=== PATIENT | female | born 1955 | race Caucasian/White ===

== ENCOUNTER → 2016-09-09 | Outpatient (CLI) | payer OTHER ==
--- NOTE | 2016-09-09 13:21 | MAM ---
EXAM DESCRIPTION: Diagnostic Mammo,Left CLINICAL HISTORY: 60 years, Female, diagnostic unilateral mammogram, left breast. This is a short-term follow-up of a possible abnormality seen on the left breast COMPARISON: I compared directly with March 12, 2016 mammography TECHNIQUE: CC, MLO, and true lateral views of the left breast with computer aided detection FINDINGS: There are scattered fibroglandular densities. The finding in question noted previously does not persist on the study today. Benign microcalcifications are present. IMPRESSION: BI-RADS 2: BENIGN FOLLOW-UP: Routine mammography screening. Electronically signed by: Juan Luis Lara MD 09/09/2016 1:20 PM CDT
== END | disposition home or self-care (01) ==
LOC: MAMMO 12:45
PROVIDERS: ATTEND Family Medicine
DX: R92.8 Other abnormal and inconclusive findings on diagnostic imaging of breast (principal)

== ENCOUNTER → 2016-09-26 | Outpatient (CLI) | payer OTHER | LOC: LAB.O 08:20 | PROVIDERS: ATTEND Family Medicine | DX: E87.6 Hypokalemia (principal); E03.9 Hypothyroidism, unspecified; R73.9 Hyperglycemia, unspecified ==

== ENCOUNTER → 2017-09-16 | Outpatient (CLI) | payer OTHER ==
--- NOTE | 2017-09-17 15:41 | MAM ---
EXAM DESCRIPTION: 3D Screening BILATERAL : Digital Mammography. CLINICAL HISTORY: 61 years Female SCREENING . No complaints. No family history of breast cancer. Childbirth. Postmenopausal. Currently on HRT. COMPARISON: 2-D digital screening bilateral study 03/12/2016. Digital diagnostic left breast mammography 09/09/2016. Reports from prior examinations also reviewed. TECHNIQUE: Bilateral CC and MLO projection full-field images, 3-D tomosynthesis digital mammographic technique. CAD not utilized. FINDINGS: The breast parenchymal density pattern is: Scattered areas of fibroglandular density. No skin thickening or nipple retraction . Left breast axillary lymph node. Bilateral solitary microcalcifications. No focal, stellate mass or density, focal asymmetry , and no suspicious microcalcifications bilaterally. Stable mammograms compared to prior study, taking into account differences in mammographic technique IMPRESSION: BI-RADS CATEGORY: 2 - BENIGN FINDINGS. FOLLOW UP: Routine digital bilateral screening, one year interval from September 2017. Written communication explaining the IMPRESSION and follow-up, will be mailed to the patient and referring health care provider. According to the [employer], yearly mammograms are recommended starting at age 40 and continuing as long as a woman is in good health. Any breast change noted on a breast self-exam should be reported promptly to the patient's healthcare provider. Breast MRI is recommended for women with an approximately 20-25% or greater lifetime risk of breast cancer, including women with a strong family history of breast or ovarian cancer and women who have been treated for Hodgkin's disease. A negative mammographic report should not delay tissue diagnosis in patients with significant clinical history or physical findings. Extremely dense breast tissue limits the sensitivity of digital mammography. Electronically signed by: Luis Ngo MD 09/17/2017 3:40 PM CDT
== END ==
LOC: MAMMO 16:00
PROVIDERS: ATTEND Family Medicine
DX: Z12.31 Encounter for screening mammogram for malignant neoplasm of breast (principal)

== ENCOUNTER → 2017-11-13 | Outpatient (CLI) | payer OTHER | LOC: LAB.O 08:39 | PROVIDERS: ATTEND Family Medicine | DX: E87.6 Hypokalemia (principal); R73.9 Hyperglycemia, unspecified; E03.9 Hypothyroidism, unspecified ==

== ENCOUNTER → 2017-11-25 | Outpatient (CLI) | payer OTHER ==
--- NOTE | 2017-11-25 16:25 | RAD ---
EXAM DESCRIPTION: Chest,2 Views CLINICAL HISTORY: ENCOUNTER FOR GENERAL ADULT EXAM W/O ABNORMAL FINDINGS COMPARISON: None TECHNIQUE: PA/lateral FINDINGS: There is no acute appearing cardiac or pulmonary abnormality. Heart size is normal with normal pulmonary vascularity. No pleural effusion or pneumothorax. Lungs are clear with no consolidating infiltrate. Small nodule in the peripheral right upper lobe is consistent with a granuloma. Lateral view shows intact sternum and osteopenic T-spine. IMPRESSION: No acute process is identified in the chest. Electronically signed by: Juventino Tate MD 11/25/2017 4:24 PM CDT
== END ==
LOC: RAD 11-24 15:30
PROVIDERS: ATTEND Family Medicine
DX: Z00.00 Encounter for general adult medical examination without abnormal findings (principal)

== ENCOUNTER 2018-01-23 11:43 | Emergency (ER) | payer OTHER ==
--- NOTE | 2018-01-23 12:15 | ED.PDOC ---
History of Present Illness - General Chief Complaint: Trauma Stated Complaint: s/p fall Time Seen by Provider: 01/23/18 11:43 Source: patient, RN notes reviewed, Vital Signs reviewed Exam Limitations: no limitations Additional Information: 62 YEAR OLD FELL IN THE PARKING LOT AFTER HER SHOES SLIPPED ON THE WET ROAD SHE FELL LANDING ON THE RIGHT BUTTOCK AND RIGHT ARM SHE GOT UP WITHOUT ANY ASSISTANCE WALKED TO THE ER SHE HAS NO LOC NO HEAD NECK INJURY SHE HAS NO SPECIFIC COMPLAINT ADMITS TO DISCOMFORT IN THE RIGHT HIP AREA SHE HAS GOOD RANGE OF BOTH ACTIVE AND PASSIVE MOTION WITHOUT ANY PAIN - History of Present Illness Occurred: just prior to arrival Severity: mild Pain Location: none Method of Injury: fall Improving Factors: nothing Worsening Factors: nothing Loss of Consciousness: no loss of consciousness Associated Symptoms (Fall): denies symptoms Allergies/Adverse Reactions: Allergies Naproxen [From Aleve] Allergy (Verified 05/09/14 00:41) Penicillins Allergy (Verified 05/09/14 00:41) Home Medications: Ambulatory Orders Aspirin [Kera Low Dose] 81 mg PO DAILY 09/07/15 Estradiol [Estrace Tab] 1 mg PO DAILY 09/07/15 Levothyroxine Sodium [Synthroid] 50 mcg PO DAILY 09/07/15 Medroxyprogesterone Acetate [Provera] 2.5 mg PO DAILY 09/07/15 Topiramate [Topamax] 100 mg PO BID 09/07/15 Review of Systems - Review of Systems Constitutional: States: no symptoms reported EENTM: States: no symptoms reported Respiratory: States: no symptoms reported Cardiology: States: no symptoms reported Gastrointestinal/Abdominal: States: no symptoms reported Genitourinary: States: no symptoms reported Musculoskeletal: States: no symptoms reported Skin: States: no symptoms reported Neurological: States: no symptoms reported Endocrine: States: no symptoms reported Hematologic/Lymphatic: States: no symptoms reported Past Medical History (General) - Patient Medical History Hx of COPD: Yes Hx Congestive Heart Failure: No Hx Hypertension: No Hx Diabetes: No - Vaccination History Hx Tetanus, Diphtheria Vaccination: Yes Hx Influenza Vaccination: Yes - 2014 Hx Pneumococcal Vaccination: No - Social History Hx Tobacco Use: No Family Medical History - Family History Mother Living Status: Physical Exam - Physical Exam General Appearance: Alert, Comfortable Head Injury: no evidence of injury Eye Exam: bilateral normal ENT Exam: hearing grossly normal, no evidence of ENT injury, no dental injury Neck Exam: non-tender, full range of motion, normal alignment, normal inspection Cardiovascular/Respiratory: regular rate, rhythm, no M/R/G, normal peripheral pulses, no JVD, normal breath sounds, no respiratory distress Gastrointestinal/Abdominal: normal bowel sounds, non tender, soft, no organomegaly, no pulsatile mass Back Exam: normal inspection, no CVA tenderness, no vertebral tenderness Extremity Exam: no evidence of injury, normal range of motion, non-tender Neurologic: 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 Copy, Patient Portal Self Enrollment Instructions: DI for Trauma Diet: resume usual diet Referrals: Jaxson Krishna MD [Primary Care Provider] - 1-2 Weeks Home Medications: Ambulatory Orders Aspirin [Kera Low Dose] 81 mg PO DAILY 09/07/15 Estradiol [Estrace Tab] 1 mg PO DAILY 09/07/15 Levothyroxine Sodium [Synthroid] 50 mcg PO DAILY 09/07/15 Medroxyprogesterone Acetate [Provera] 2.5 mg PO DAILY 09/07/15 Topiramate [Topamax] 100 mg PO BID 09/07/15
[2018-01-23 12:32] VITALS: BP 145/71; TEMP 97; O2SAT 99
== END 2018-01-23 12:30 | disposition home or self-care (01) ==
LOC: ER 11:43
DX: T14.8XXA Other injury of unspecified body region, initial encounter (principal); M25.551 Pain in right hip; J44.9 Chronic obstructive pulmonary disease, unspecified; Z79.82 Long term (current) use of aspirin; Z79.899 Other long term (current) drug therapy; Z88.6 Allergy status to analgesic agent; Z88.0 Allergy status to penicillin; W01.0XXA Fall on same level from slipping, tripping and stumbling without subsequent striking against object, initial encounter; Y92.481 Parking lot as the place of occurrence of the external cause

== ENCOUNTER → 2018-04-22 | Outpatient (CLI) | payer OTHER | LOC: LAB.O 07:12 | PROVIDERS: ATTEND Family Medicine | DX: I10 Essential (primary) hypertension (principal); E03.9 Hypothyroidism, unspecified; R73.9 Hyperglycemia, unspecified ==

== ENCOUNTER → 2018-11-16 | Outpatient (CLI) | payer BC ==
--- NOTE | 2018-11-16 16:47 | MAM ---
EXAM DESCRIPTION: 3D Diagnostic, Left (accession [id number]), Breast,Left (accession [id number]): Ultrasound CLINICAL HISTORY: 63 yearsFemaleAbnormal mammo . Possible enlarged lymph node left breast. Lifetime risk of developing breast cancer (Tyrer-Cuzick model)(%): Not calculated COMPARISON: Bilateral screening digital breast tomosynthesis 09/23/2018. TECHNIQUE: Left breast LM projection full-field images, digital mammographic tomosynthesis technique. CAD not available . Transcutaneous scanning of the left breast utilizing casillas-scale and Doppler modes. Scanning performed by the stove refinisher ; monitored by Dr. Ngo. FINDINGS: The breast parenchymal density pattern is: Scattered areas of fibroglandular density. No skin thickening or nipple retraction digital tomosynthesis images suggest eccentric fat within the small density just anterior to the pectoral muscle more likely representing a lymph node. No focal asymmetry is seen in the posterior fibroglandular tissues. Ultrasound: Scanning of the 12:00 position of the left breast in the left axilla. Almost totally fatty echotexture. Minimal fibroglandular tissues. At the 12:00 position 4 cm from the nipple is a hypoechoic mass measuring 3.8 x 2.1 cm with circumscribed margins and central echogenicity. Not vascular. Wider than tall orientation with predominantly posterior acoustic enhancement. Most likely a lymph node. IMPRESSION: Benign exam. BIRAD CATEGORY: 2 BENIGN FINDINGS. RECOMMENDATIONS: FOLLOW UP: Routine digital bilateral mammographic screening, one year interval from September 2018. Written communication explaining the IMPRESSION and follow-up, will be mailed to the patient and referring health care provider. The FINDINGS and the FOLLOW-UP plan were reviewed in person with the patient after the examination. According to the [employer], yearly mammograms are recommended starting at age 40 and continuing as long as a woman is in good health. Any breast change noted on a breast self-exam should be reported promptly to the patient's healthcare provider. Breast MRI is recommended for women with an approximately 20-25% or greater lifetime risk of breast cancer, including women with a strong family history of breast or ovarian cancer and women who have been treated for Hodgkin's disease. A negative mammographic report should not delay tissue diagnosis in patients with significant clinical history or physical findings. Extremely dense breast tissue limits the sensitivity of digital mammography. Electronically signed by: Luis Ngo MD 11/16/2018 4:45 PM CDT
== END ==
LOC: US 15:00
PROVIDERS: ATTEND Family Medicine
DX: R92.8 Other abnormal and inconclusive findings on diagnostic imaging of breast (principal)
CPT/HCPCS: 76641; 77065; G0279

== ENCOUNTER → 2019-11-19 | Outpatient (CLI) | payer MEDICARE, OTHER ==
--- NOTE | 2019-11-22 12:22 | MAM ---
EXAM DESCRIPTION: 3D Screening BILATERAL : Digital Mammography. CLINICAL HISTORY: 64 years Female ANNUAL SCREENING . No complaints. Menarche age 11. Childbirth age 19. Menopause age 34. Currently on HRT. Lifetime risk of developing breast cancer (Tyrer-Cuzick model)(%): 5.8. COMPARISON: Bilateral screening digital breast tomosynthesis September 2018 and left breast digital breast diagnostic tomosynthesis November 2018.. TECHNIQUE: Bilateral CC and MLO projection full-field images, digital tomosynthesis mammographic technique. Bilateral digital 2-D full-field MLO images. CAD available for 2-D images. FINDINGS: The breast parenchymal density pattern is: Scattered areas of fibroglandular density. No skin thickening or nipple retraction. Stable small mass density with calcification most likely a lymph node. No new focal, stellate mass or density, focal asymmetry , and no suspicious microcalcifications bilaterally. Stable mammograms compared to prior study. IMPRESSION: Benign exam. BIRAD CATEGORY: 2 BENIGN FINDINGS. RECOMMENDATIONS: FOLLOW UP: Routine digital bilateral mammographic screening, one year interval from November 2019. Written communication explaining the IMPRESSION and follow-up, will be mailed to the patient and referring health care provider. According to the [employer], yearly mammograms are recommended starting at age 40 and continuing as long as a woman is in good health. Any breast change noted on a breast self-exam should be reported promptly to the patient's healthcare provider. Breast MRI is recommended for women with an approximately 20-25% or greater lifetime risk of breast cancer, including women with a strong family history of breast or ovarian cancer and women who have been treated for Hodgkin's disease. A negative mammographic report should not delay tissue diagnosis in patients with significant clinical history or physical findings. Extremely dense breast tissue limits the sensitivity of digital mammography. Electronically signed by: Luis Ngo MD 11/22/2019 12:20 PM CDT
== END ==
LOC: MAMMO 11:30
PROVIDERS: ATTEND Family Medicine
DX: Z12.31 Encounter for screening mammogram for malignant neoplasm of breast (principal)

== ENCOUNTER → 2019-12-13 | Outpatient (CLI) | payer MEDICARE, OTHER | LOC: GMAM 10:32 | PROVIDERS: ATTEND Family Medicine | DX: E03.9 Hypothyroidism, unspecified (principal); I50.32 Chronic diastolic (congestive) heart failure ==

== ENCOUNTER → 2019-12-29 | Outpatient (CLI) | payer MEDICARE, OTHER ==
--- NOTE | 2019-12-30 09:15 | CT ---
EXAM DESCRIPTION: Chest w/o Contrast : Computed Tomography. CLINICAL HISTORY: 64 years Female TOBACCO USE COMPARISON: None. TECHNIQUE: Spiral-axial scans at 5 x 5 mm intervals through the lungs and thorax without IV contrast. 2.5 x 5 mm lung algorithm axial reconstructions. Coronal and sagittal 2.0 Mm reconstructions. Total Exam DLP: 457 mGy-cm. This exam was performed according to our departmental dose-optimization program which includes automated exposure control, adjustment of the mA and/or kV according to patient size and/or use of iterative reconstruction technique; to reduce radiation dose to as low as reasonably achievable (ALARA). Nodule measurements under 10 mm are given as mean value of 3 axes diameters. FINDINGS: Lungs and large airways: Small parenchymal blebs bilaterally in the upper lung kirk. 5 mm semisolid nodule in the medial subpleural right apex versus extension of pleural scarring, on axial series 4, images 16 and 17. Subpleural calcified nodule lateral right lobe measuring 4 mm with extension to the pleura. Pleural spaces: Bilateral pleural-parenchymal scarring. No acute process. Mediastinum and Blessing: Evaluation limited due to lack of IV contrast small lymph nodes with no dominant soft tissue masses. Small calcifications in the mediastinum. Great vessels and Heart: Evaluation limited due to lack of IV contrast. Atherosclerotic calcification aortic arch possibly right coronary artery and LAD Soft tissues of neck base, axillae, and chest wall: Evaluation limited due to lack of IV contrast. Normal size axillary nodes Upper abdomen: Gallbladder visualized. Atherosclerotic calcifications in the kidneys. 3.4 mm stone upper collecting system on the left and 6.4 mm stone lower collecting system on the left. Gallbladder visualized with no fluid. Normal size and density of adrenal glands and spleen. No free air or fluid in the included peritoneal space. Osseous structures: Mild thoracic dextroscoliosis minimal spondylosis anterior mid thoracic spine T7-T8.. IMPRESSION: Early emphysematous disease in the upper lung kirk. Semisolid nodule subpleural right apex versus extension of focal pleural scarring. Calcified granuloma right upper lobe. No acute process. [facility] Best Practice guidelines: 5.0 mm semi-solid pulmonary nodule within the upper lobe. A non-contrast Chest CT at 12 months is optional. If performed and the nodule is stable at 12 months, no further follow-up is recommended. These guidelines do not apply to immunocompromised patients and patients with cancer. Follow up in patients with significant comorbidities as clinically warranted. For lung cancer screening, adhere to Lung-RADS guidelines. Consider enrolling patient in the [facility] lung cancer screening program. Reference: Radiology. 2017; 284(1):228-43. Electronically signed by: Luis Ngo MD 12/30/2019 9:14 AM CDT
== END | disposition home or self-care (01) ==
LOC: CT 09:04
PROVIDERS: ATTEND Family Medicine
DX: Z72.0 Tobacco use (principal)